=== PATIENT | female | born 1975 | race African-American/Black ===

== ENCOUNTER → 2020-07-13 09:18 | Outpatient (CLI) | payer OTHER, SELFPAY ==
--- NOTE | ~2020-07-13 | XR_ITS ---
XR hand RT min 3V, XR hand LT min 3V 07/13/2020 10:33 Indication: Bilateral hand pain. History of lupus. Procedure: 3 views each hand Comparison: No prior studies for comparison. Findings: No fracture, subluxation or dislocation. There is anatomic alignment. No erosive changes. N o significant soft tissue abnormality. No foreign bodies. Impression: 1: No significant bone or joint abnormality. Reviewed, dictated and finalized at location B. UCT OPERATIONS ASSOCIATE Impression: 1: No significant bone or joint abnormality. Impression: 1: No significant bone or joint abnormality.
--- NOTE | ~2020-07-13 | XR_ITS ---
XR hip BI 2V w AP pelvis 07/13/2020 10:33 Indication: Pelvic pain Procedure: AP pelvis and 3 views each hip Comparison: 08/14/2012 Findings: Pelvic rings are intact. Sacral foramen are symmetric. Hips are symmetric. No significant j oint space narrowing. No fracture or traumatic malalignment. Impression: 1: No significant bone or joint abnormality. Reviewed, dictated and finalized at location B. GER FIXER Impression: 1: No significant bone or joint abnormality.
--- NOTE | ~2020-07-13 | XR_ITS ---
LUMBAR SPINE INDICATION: Low back pain. History of lupus. TECHNIQUE: 3 views lumbar spine COMPARISON: 7 FINDINGS: No fracture, subluxation or dislocation. No evidence for spondylolysis or spondylolisthesi s. There is levocurvature of the lumbar spine. Vertebral bodies and disk spaces are preserved. There are cholecystectomy clips. IMPRESSION: 1: Mild levoscoliosis.. Reviewed, dictated and finalized at location B. ASOUND MANAGER IMPRESSION: 1: Mild levoscoliosis..
== END ==
PROVIDERS: PCP Family Medicine; Visit Provider Family Medicine
DX: M35.9 Systemic involvement of connective tissue, unspecified (principal); M41.9 Scoliosis, unspecified
CPT/HCPCS: 72100; 73130; 73521

== ENCOUNTER 2020-11-14 02:12 | Emergency (ER) | payer OTHER, SELFPAY ==
[2020-11-14] VITALS (9 sets, daily range): BP systolic 107–145; BP diastolic 63–92; PULSE 77–98; RESP 12–23; TEMP 36.9; O2SAT 98–100
--- NOTE | ~2020-11-14 | XR_ITS ---
EXAMINATION: XR chest 2V DATE: 11/14/2020 02:44 INDICATION: Shortness of breath. Cough. Asthma. TECHNIQUE: Frontal and lateral views of the chest were obtained. COMPARISON: None. FINDINGS: The chest demonstrates clear lungs without pneumonia, pleural effusion, or pneumothorax. Th e heart size is normal. Surgical clips in the right upper quadrant are likely from cholecystectomy. IMPRESSION: 1. No acute cardiopulmonary disease. Reviewed, dictated and finalized at location A.
--- NOTE | 2020-11-14 02:25 | ED.ASTHMA ---
HPI - Asthma General Chief Complaint: Asthma Stated Complaint: asthma Time Seen by Provider: 11/14/20 02:19 Source: patient Mode of arrival: ambulatory Limitations: no limitations History of Present Illness HPI Narrative: Patient is a 45-year-old female complaining of asthma attack that started tonight, states that she has a history of asthma and allergies. Patient states that she has been coughing the past 2 days and sinus congestion it has been my allergies, I took Zyrtec and Mucinex which provided some relief. Patient also states that she used Vicks earlier tonight which helped with the symptoms. Patient denies any chest pain, Ramesh pain, nausea, vomiting, fever or chills. Related Data Allergies Allergy/AdvReac Type Severity Reaction Status Date / Time Penicillins Allergy Rash Verified 11/14/20 02:20 Review of Systems Review of Systems: All systems reviewed & are unremarkable except as noted in HPI and below Constitutional: Constitutional: Denies body ache(s), Denies chills, Denies excessive sweating, Denies fatigue, Denies fever(s), Denies headache(s), Denies lethargy, Denies malaise, Denies weakness and Denies weight loss Eyes: Eyes: Denies blurry vision, Denies change in vision and Denies loss of vision ENT: Denies dizziness, Denies ear discharge, Denies headache(s), Denies lip swelling, Denies epistaxis, Denies nasal congestion, Denies neck pain, Denies throat swelling and Denies tongue swelling Cardiovascular: Cardiovascular: Denies chest pain, Denies chest pain at rest, Denies chest pain with activity, Denies diaphoresis, Denies rapid heart rate, Denies edema, Denies irregular heart rhythm, Denies lightheadedness and Denies palpitations Respiratory: Respiratory: Denies chest congestion and Denies hemoptysis Gastrointestinal: Gastrointestinal: Denies abdominal pain, Denies melena, Denies hematochezia, Denies diarrhea, Denies nausea, Denies vomiting and Denies hematemesis Musculoskeletal: Musculoskeletal: Denies abnormal gait, Denies deformity, Denies joint swelling, Denies limited range of motion, Denies neck pain and Denies numbness Neurologic: Denies Abnormal speech present, Denies abnormal gait, Denies confusion, Denies dizziness, Denies headache(s), Denies focal weakness, Denies loss of vision, Denies numbness, Denies Other visual disturbances, Denies Sensory deficit (Neuro) and Denies weakness Psychiatric: Psychiatric: Denies confusion, Denies depression, Denies auditory hallucinations, Denies homicidal ideation and Denies suicidal ideation Endocrine: Endocrine: Denies cold intolerance, Denies excessive sweating, Denies fatigue, Denies heat intolerance and Denies palpitations Hematologic/Lymphatic: Hematologic/Lymphatic: Denies easy bleeding and Denies easy bruising Allergic/Immunologic: Allergic/Immunologic: Denies lip swelling, Denies throat swelling and Denies tongue swelling [facility] Social History Social History Gender identity (if verbalized by the patient): Female Comments Past medical history: Asthma, allergies Family history: Noncontributory Social history: 1/4 pack/day smoker, no EtOH or drug use Exam Const: General: cooperative, healthy appearing, comfortable, no acute distress, well developed, alert and awake; No confusion Orientation/consciousness: oriented to person, oriented to place, oriented to time, patient oriented x3 and No confusion Limitations: no limitations Other: Moderate distress HENMT: Head: normal to inspection, normocephalic and atraumatic Ears: hearing grossly normal bilaterally, TM normal on the right and TM normal on the left General nose exam: Normal external nose present, Normal nares present and No nasal discharge present Face and sinus: normal facial exam Mouth: Yes Normal oral and palatal mucosa present, Yes lip normal, Yes tongue normal and Yes oropharynx normal Throat: posterior oropharynx normal, tonsils normal and
[2020-11-14] MEDS: IPRATROPIUM BR 0.02% INH SOLN 0.5 MG/2.5 ML VIAL INHALATION ×2 (02:30→03:47)
[2020-11-14] MEDS: ALBUTEROL SULFATE NEB 2.5 MG/0.5 ML INH 5 MG INHALATION ×2 (02:30→03:47)
[2020-11-14] MEDS: methylPREDNISolone SOD SUCC 125 MG VIAL IV PUSH (02:38)
--- NOTE | 2020-11-14 04:20 | ECG_ITS ---
Measurements Intervals [place] Rate: 96 P: 67 ID: [id number] QRS: 56 QRSD: 79 T: 22 QT: 354 QTc: 448 Interpretive Statements SINUS RHYTHM POSSIBLE LEFT ATRIAL ENLARGEMENT BORDERLINE ST-T WAVE ABNORMALITY- INFERIOR LEADS BASELINE ARTIFACT- IIII, AVL, AVF BORDERLINE ECG Electronically Signed On 11-14-2020 6:52:13 CDT by Mayur Chopra D.O.
[2020-11-14 04:47] LABS: Basophils Absolute Auto 0.1 K/mm3 (0.0-0.1); Basophils Percent Auto 0.3 % (0.2-1.2); Eosinophils Absolute Auto 0.2 K/mm3 (0-0.3); Eosinophils Percent Auto 1.1 % (0-4.4); Hematocrit 39.6 % (37.0-47.0); Hemoglobin 13.4 g/dL (12.0-15.0); Immature Granulocyte Absolute 0.06 K/mm3 (0.00-0.031); Immature Granulocyte Percent A 0.4 % (0-0.5); Lymphocytes Absolute Auto 1.15 K/mm3 (0.9-3.2); Lymphocytes Percent Auto 7.9 % (18.3-44.2); Mean Corpuscular HGB Conc 33.8 g/dl (32-36); Mean Corpuscular Hemoglobin 27.1 pg (26-34); Mean Platelet Volume 10.5 fl (7.4-10.4); Monocytes Absolute Auto 0.3 K/mm3 (0.1-0.6); Monocytes Percent Auto 2.2 % (2.6-8.5); Neutrophils Absolute Auto 12.9 K/mm3 (1.3-6.7); Neutrophils Percent Auto 88.1 % (45.5-73.1); Platelet Count Result 223 k/mm3 (150-375); Red Blood Count 4.95 M/mm3 (4.2-5.4); Red Cell Distribution Width 13.1 % (11.5-14.5); White Blood Count 14.6 K/mm3 (4.5-10.0)
[2020-11-14 04:59] LABS: Anion Gap 10 mmol/L (8-16); Blood Urea Nitrogen 11 mg/dL (7-17); Calcium 8.8 mg/dL (8.4-10.2); Carbon Dioxide 21 mmol/L (22-30); Chloride 108 mmol/L (98-107); D Dimer 0.27 ug/mL (<0.48); Estimated Glomerular Filt Rate > 60; Glucose 119 mg/dL (65-105); Potassium 3.8 mmol/L (3.4-5.0); Sodium 139 mmol/L (137-145)
[2020-11-14 05:09] LABS: Troponin I < 0.012 ng/mL (0.000-0.034)
== END 2020-11-14 05:55 | disposition left against medical advice (07) ==
PROVIDERS: Emergency Provider Emergency Medicine; PCP Family Medicine
DX: J45.901 Unspecified asthma with (acute) exacerbation (principal); F17.210 Nicotine dependence, cigarettes, uncomplicated
CPT/HCPCS: 36415; 71046; 80048; 84484; 85025; 85380; 93005; 94640; 96374; 99284; J2930

== ENCOUNTER 2021-08-17 10:13 | Emergency (ER) | payer OTHER, SELFPAY ==
--- NOTE | ~2021-08-17 | XR_ITS ---
EXAMINATION: XR thoracic spine 3V DATE: 08/17/2021 10:55 INDICATION: Back pain post twisting back injury TECHNIQUE: One AP, lateral and lateral swimmer's views of the thoracic spine were obtained. COMPARISON: Two-view chest radiograph dated 11/14/2020 FINDINGS: Alignment is normal. Unchanged minimal anterior wedging at T5 and T7.. Disc heights are normal with m ild degenerative endplate changes at a few levels in the mid to lower thoracic spine. Visualized port ion of the lungs are clear with no pleural effusion or pneumothorax. Cardiomediastinal silhouette is normal. Pectus excavatum. Cholecystectomy clips in right upper quadrant. IMPRESSION: 1. Chronic minimal anterior wedging at T5 and T7 with negligible thoracic spondylosis. No evident acu te osseous abnormality. Reviewed, dictated and finalized at location B. UNTANT CLERK IMPRESSION: 1. Chronic minimal anterior wedging at T5 and T7 with negligible thoracic spond ylosis. No evident acute osseous abnormality.
--- NOTE | 2021-08-17 10:18 | ED.NAVMDI ---
HPI - Nausea/Vomiting/Diarrhea General Chief complaint: Back Pain/Injury Stated complaint: vomiting/back pain Time Seen by Provider: 08/17/21 10:20 Source: patient, RN notes reviewed and old records reviewed Mode of arrival: ambulatory Limitations: no limitations History of Present Illness HPI Narrative: 45-year-old female presents to the [facility] with complaints of mid back pain after throwing garbage out on Friday. States that she took muscle relaxers and ibuprofen but states she is not getting any better. Tried calling her primary care provider who would not put in an x-ray for her. States that she has had pain that has made her want to vomit. Denies abdominal pain or chest pain. MD elicited complaint: nausea and vomiting Related Data Home Medications Medication Instructions Recorded Confirmed albuterol sulfate 2 puff INHALATION PRN PRN 08/17/21 08/17/21 amlodipine 10 mg PO DAILY 08/17/21 08/17/21 baclofen 10 mg PO PRN PRN 08/17/21 08/17/21 budesonide-formoterol [Symbicort] 2 puff INHALATION DAILY 08/17/21 08/17/21 odriwgeqjd-imwliwehlgesc-vohv 1 cap PO DAILY 08/17/21 08/17/21 ergocalciferol (vitamin D2) 1,250 mcg PO DAILY 08/17/21 08/17/21 furosemide 40 mg PO DAILY 08/17/21 08/17/21 metoprolol succinate 50 mg PO DAILY 08/17/21 08/17/21 montelukast 10 mg PO DAILY 08/17/21 08/17/21 omeprazole 40 mg PO DAILY 08/17/21 08/17/21 ondansetron 8 mg PO DAILY 08/17/21 08/17/21 ropinirole 1 mg PO DAILY 08/17/21 08/17/21 spironolactone 50 mg PO DAILY 08/17/21 08/17/21 tiotropium bromide [Spiriva 2 puff INHALATION DAILY 08/17/21 08/17/21 Respimat] triamterene-hydrochlorothiazid 1 tablet PO DAILY 08/17/21 08/17/21 Allergies Allergy/AdvReac Type Severity Reaction Status Date / Time Penicillins Allergy Rash Verified 08/17/21 10:35 codeine AdvReac Unknown Nausea and Verified 08/17/21 10:35 Vomiting Review of Systems Review of Systems: All systems reviewed & are unremarkable except as noted in HPI and below Constitutional: Constitutional: Reports no additional constitutional complaints, Denies chills and Denies fever(s) Eyes: Eyes: Reports no additional eye complaints ENT: Reports system reviewed and no additional complaints, except as documented Cardiovascular: Cardiovascular: Reports no additional cardiovascular complaints, Denies chest pain, Denies rapid heart rate, Denies radiating jaw, neck or arm pain and Denies slow heart rate Respiratory: Respiratory: Reports no additional respiratory complaints, Denies cough, Denies dyspnea and Denies wheezing Gastrointestinal: Gastrointestinal: Reports no additional gastrointestinal complaints, Denies abdominal pain, Denies diarrhea, Denies nausea and Denies vomiting Genitourinary: Genitourinary: Reports no additional female genitourinary complaints, Denies dysuria and Denies urinary incontinence Musculoskeletal: Musculoskeletal: Reports as per HPI, Reports back pain (Lower thoracic), Denies myalgias, Denies arthralgias, Denies joint swelling and Denies muscle cramps Integumentary/Breasts: Skin/Breast: Reports system reviewed and no additional complaints, except as docu Neurologic: Reports system reviewed and no additional complaints, except as documented Psychiatric: Psychiatric: Reports no additional psychiatric complaints Allergic/Immunologic: Allergic/Immunologic: Reports no additional allergic/immunologic complaints [facility] Past Medical History Medical History (Updated 08/17/21 @ 14:18 by Daysi Ortez) Asthma Hypertension Family History Family History Mother Patient's mother is in good health Father Patient's father is in good health Mother Hypertension Social History Social History Smoking status: Light tobacco smoker Alcohol intake: never Gender identity (if verbalized by the patient): Female Comments At the time of my signature, I reviewed and
[2021-08-17 10:21] VITALS: BP 142/84; PULSE 90; RESP 17; TEMP 36.6; O2SAT 99
[2021-08-17 10:31] VITALS: BP 142/84; PULSE 90; RESP 17; TEMP 36.6; O2SAT 99
== END 2021-08-17 11:40 | disposition home or self-care (01) ==
PROVIDERS: Emergency Provider Nurse Practitioner; PCP Physician Assistant
DX: M54.6 Pain in thoracic spine (principal); F17.200 Nicotine dependence, unspecified, uncomplicated; J45.909 Unspecified asthma, uncomplicated; I10 Essential (primary) hypertension
CPT/HCPCS: 72072; 99213; G0463

== ENCOUNTER → 2022-09-25 11:31 | Outpatient (CLI) | payer OTHER, MEDICAID, SELFPAY ==
--- NOTE | ~2022-09-25 | US_ITS ---
EXAMINATION: US transvaginal DATE: 09/25/2022 12:11 INDICATION: Pelvic pain Comparison:Ultrasound dated 10/04/2014 TECHNIQUE: Multiple transabdominal and endovaginal sonographic images of the pelvis performed. FINDINGS: The uterus measures 8.1 x 4.6 x 5.5 cm. The endometrial complex measures 1 cm. There is gabbie rine fibroid measuring 2.3 cm. The right ovary is not visualized. Left ovary measures 3.6 x 2.1 x 3.1 cm. There is a hemorrhagic cys t measuring 2.1 cm and the left ovary. There is trace free fluid in the pelvis. There are no abnormal masses seen on either side. IMPRESSION: 1. Uterine fibroid measuring 2.3 cm. 2: Hemorrhagic cyst of the left ovary measuring 2.1 cm. Reviewed, dictated and finalized at location A. UP OPERATOR
== END ==
PROVIDERS: PCP Advanced Practice Midwife; Visit Provider Advanced Practice Midwife
DX: R10.2 Pelvic and perineal pain (principal); D25.9 Leiomyoma of uterus, unspecified; N83.202 Unspecified ovarian cyst, left side
CPT/HCPCS: 76830

== ENCOUNTER → 2023-07-22 06:59 | Outpatient (CLI) | payer OTHER, MEDICAID, SELFPAY ==
--- NOTE | ~2023-07-22 | MR_ITS ---
MRI of the second spine Clinical History: Spinal stenosis Technique: Axial T2-weighted and gradient images, and sagittal T1-weighted, T2-weighted, and STIR suzanna ges were acquired. Findings: There is reversal normal cervical lordosis. No fracture or subluxation seen. No suspicious bone marrow signal abnormality seen. At C2-C3, there is minimal disc osteophyte complex with minimal facet arthropathy. There is minimal r ight neural foraminal narrowing. Left neural foramen preserved. No central canal stenosis or cord com pression. At C3-C4, there is mild disc osteophyte convex. There is mild canal stenosis without ambrosio cord compr ession. There is mild bilateral neural foraminal narrowing with minimal facet arthropathy. At C4-C5, there is disc osteophyte complex, with spinal canal stenosis and minimal flattening the alena tral cord. There is bilateral neural foraminal narrowing, right worse than left, with mild facet arth ropathy. At C5-C6, there is disc osteophyte complex resulting in moderate canal stenosis and cord compression. There is bilateral neural foraminal narrowing, right worse than left. At C6-C7, there is disc osteophyte complex with mild canal stenosis and minimal ventral cord flatteni ng. There is probable mild bilateral neural foraminal narrowing. No abnormal signal seen in the spinal cord. Paravertebral soft tissues are unremarkable. Impression: Moderate canal stenosis and cord compression at C5-C6 related to disc osteophyte complex. Mild canal stenosis and minimal ventral cord flattening at C4-C5 and C6-C7, related to disc osteophyt e complexes. Multilevel neural foraminal narrowing in the cervical spine, as detailed above. Reviewed, dictated and finalized at [facility]. ICAL WEIGHER Impression: Moderate canal stenosis and cord compression at C5-C6 related to disc osteophyt e complex. Mild canal stenosis and minimal ventral cord flattening at C4-C5 and C6-C7, rel ated to disc osteophyte complexes. Multilevel neural foraminal narrowing in the cervical spine, as detailed above.
== END ==
PROVIDERS: PCP Orthopaedic Surgery Orthopaedic Surgery of the Spine; Visit Provider Orthopaedic Surgery Orthopaedic Surgery of the Spine
DX: M48.02 Spinal stenosis, cervical region (principal)
CPT/HCPCS: 72141